=== PATIENT | female | born 1985 | race Caucasian/White ===

== ENCOUNTER 2024-02-12 13:26 | Emergency (ER) | payer OTHER ==
[2024-02-12 14:08] LABS: BASOPHILS ABSOLUTE AUTO 0.03 10^3/uL (0.00-0.10); BASOPHILS PERCENT AUTO 0.6 % (0.0-1.0); EOSINOPHILS ABSOLUTE AUTO 0.28 10^3/uL (0.10-0.30); EOSINOPHILS PERCENT AUTO 5.2 % (1.0-3.0); HEMATOCRIT 36.2 % (37.0-47.0); HEMOGLOBIN 11.9 g/dL (12.0-16.0); IMMATURE GRAN ABSOLUTE AUTO 0.01 10^3/uL (0.00-0.50); IMMATURE GRAN PERCENT AUTO 0.2 % (0.0-5.0); LYMPHOCYTES ABSOLUTE AUTO 1.44 10^3/uL (1.00-4.00); LYMPHOCYTES PERCENT AUTO 26.7 % (20.0-40.0); MEAN CORPUSCULAR HGB CONC 32.9 g/dL (32.0-36.0); MEAN CORPUSCULAR VOLUME 91.2 fL (82.0-92.0); MEAN PLATELET VOLUME 9.1 fL (7.4-10.4); MONOCYTES ABSOLUTE AUTO 0.38 10^3/uL (0.10-0.80); MONOCYTES PERCENT AUTO 7.1 % (2.0-8.0); NEUTROPHILS ABSOLUTE AUTO 3.25 10^3/uL (2.50-7.00); NEUTROPHILS PERCENT AUTO 60.2 % (50.0-70.0); PLATELET COUNT,PLT 235 10^3/uL (150-400); RED BLOOD CELL COUNT 3.97 10^6/uL (3.80-5.50); WHITE BLOOD CELL COUNT,WBC 5.39 10^3/uL (5.00-10.00)
[2024-02-12 14:23] LABS: ALBUMIN 3.89 g/dL (3.40-5.00); ANION GAP 12.6 mmol/L (5-15); BILIRUBIN TOTAL 0.6 mg/dL (0.2-1.0); CALCIUM 8.6 mg/dL (8.7-10.3); CARBON DIOXIDE,CO2 28.6 mmol/L (21.0-32.0); CREATININE 0.7 mg/dL (0.51-1.17); EST CRCL DRUG DOSING (CG) 87.03 mL/min; POTASSIUM,K 4.2 mmol/L (3.5-5.1)
== END 2024-02-12 15:07 | disposition home or self-care (01) ==
LOC: KA.ED 13:26
DX: S13.4XXA Sprain of ligaments of cervical spine, initial encounter (principal); V43.53XA Car driver injured in collision with pick-up truck in traffic accident, initial encounter
CPT/HCPCS: 36415; 72125; 73000-LT; 80053; 85025; 99283; 99284